=== PATIENT | female | born 2000 | race Caucasian/White ===

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

== ENCOUNTER → 2019-02-28 14:58 | Outpatient (CLI) | payer MEDICAID, SELFPAY ==
--- NOTE | 2019-02-28 15:11 | US_ITS ---
US thyroid HISTORY: ITS.REASON: SUBACUTE THTROIDITIS ORDERING PHYSICIAN: Galina Wolf APRN PATIENT AGE: 18 years Comparison: None FINDINGS: The right lobe is 4.3 x 1.4 x 1.6 cm with mild heterogeneous echogenicity. No discrete nodule. The left lobe is 4.3 x 1.6 x 1.5 cm. A small isoechoic nodule is present in the mid polar region at 4 mm. The isthmus is 4 mm with a small slightly hypoechoic nodule centrally at 5 mm. IMPRESSION: 1. Small nodules within the isthmus and left lobe which are low level of suspicion for malignancy. Recommend follow-up exam in 6 months to confirm stability. 2. Mildly enlarged thyroid gland.
== END ==
PROVIDERS: PCP Nurse Practitioner Family; Visit Provider Nurse Practitioner Family
DX: E06.1 Subacute thyroiditis (principal)
CPT/HCPCS: 76536

== ENCOUNTER 2019-05-01 08:00 | Outpatient (RCR) | payer OTHER, SELFPAY | END 2019-05-01 10:00 | disposition home or self-care (01) | LOC: PT.CARL 08:00 | PROVIDERS: Visit Provider Orthopaedic Surgery Adult Reconstructive Orthopaedic Surgery | DX: M25.511 Pain in right shoulder (principal) | CPT/HCPCS: 97010; 97014; 97110; 97140; 97163; G0283 ==

== ENCOUNTER → 2019-09-06 13:10 | Outpatient (CLI) | payer OTHER, SELFPAY ==
--- NOTE | 2019-09-06 15:00 | US_ITS ---
PROCEDURE: US THYROID CLINICAL INDICATION: GOITER COMPARISON: THY US thyroid from 02/28/2019 FINDINGS: Right lobe: 1.3 x 4.2 x 1.4 centimeters. Left lobe: 1.5 x 4.3 x 1.6 centimeters. Isthmus: AP diameter is 3.9 millimeters. Additional findings: The somewhat coarse echogenic texture of the thyroid tissue remains stable. There are no abnormal nodules. IMPRESSION: No change. No follow-up is necessary. Dictated by: Ugo Cedeño 09/06/2019 16:01 Electronically signed by Ugo Cedeño in [place] 09/06/2019 16:01
== END ==
PROVIDERS: PCP Nurse Practitioner; Visit Provider Nurse Practitioner
DX: E01.1 Iodine-deficiency related multinodular (endemic) goiter (principal)
CPT/HCPCS: 76536

== ENCOUNTER → 2019-09-30 15:27 | Outpatient (CLI) | payer OTHER, SELFPAY ==
[2019-09-30 17:12] LABS: Free T4 (Free Thyroxine) 1.17 ng/dl (0.78-1.34); Thyroid Stimulating Hormone 3.93 uIU/ml (0.516-4.13)
[2019-10-02 18:18] LABS: Thyroid Peroxidase Antibodies 283 IU/mL (0-34)
[2019-10-04 12:33] LABS: Calcitonin <2.0 pg/mL (0.0-5.0); Thyroid Stimulating Immunoglob <0.10 IU/L (0.00-0.55)
== END ==
PROVIDERS: Visit Provider Otolaryngology
DX: E03.9 Hypothyroidism, unspecified (principal); E04.9 Nontoxic goiter, unspecified; E06.9 Thyroiditis, unspecified
CPT/HCPCS: 36415; 82308; 84439; 84443; 84445; 86376

== ENCOUNTER 2020-02-09 10:43 | Emergency (ER) | payer BC, SELFPAY ==
[2020-02-09 10:45] VITALS: BP 118/71; PULSE 81; RESP 18; TEMP 37.1; O2SAT 97; BMI 25.8
[2020-02-09 11:03] LABS: Microscopic, Urine URINE MICROSCOPIC (MICROSCOPIC)
[2020-02-09 11:04] LABS: Appearance,Urine CLEAR (Clear); Bilirubin,Urine Negative (Negative); Blood, Urine Negative (Negative); Color,Urine YELLOW (Yellow); Glucose,Urine (UA) Negative (Negative); Ketones,Urine Negative (Negative); Leukocyte Esterase,Urine Negative (Negative); Nitrate,Urine Negative (Negative); PH,Urine 6.5 (5.0-8.5); Protein,Urine Negative (Negative); Urobilinogen,Urine 0.2 EU/dl (0.2)
[2020-02-09 11:08] LABS: Basophils # 0.1 K/mm3 (0-0.2); Basophils % 1.2 % (0.1-2.0); Eosinophils # 0.1 K/mm3 (0.0-0.4); Eosinophils % 1.4 % (0.1-12.0); Hematocrit 36.6 % (37.0-47.0); Hemoglobin 12.7 g/dL (12.2-16.2); Lymphocytes # 2.5 K/mm3 (0.7-4.5); Mean Corpuscular HGB Conc 34.9 g/dL (31.8-35.4); Mean Corpuscular Hemoglobin 31.7 pg (27.0-31.2); Mean Corpuscular Volume 90.8 fl (81-99); Mean Platelet Volume 8.8 fl (7.4-10.4); Monocytes # 0.6 K/mm3 (0.1-1.0); Monocytes % 5.6 % (1.7-9.3); Neutrophils # 7.3 K/mm3 (1.8-7.8); Neutrophils % 68.9 % (37.0-80.0); Platelet Count 280 K/mm3 (142-424); Red Blood Count 4.03 M/mm3 (4.20-5.40); Red Cell Distribution Width 12.6 % (11.5-17.5); White Blood Count 10.7 K/mm3 (4.5-13.0)
[2020-02-09 11:13] LABS: Urine Pregnancy, HCG Qual. Positive (Negative)
[2020-02-09 11:15] LABS: Bacteria,Urine Trace /lpf; Mucus,Urine 1+ /lpf; WBC,Urine Occasional #/hpf (0-3)
[2020-02-09 11:18] LABS: Alanine Aminotransferase 12 U/L (12-78); Albumin Level 5.2 g/dl (3.5-5.0); Albumin/Globulin Ratio 1.6 (1.1-1.8); Alkaline Phosphatase 49 U/L (38-126); Anion Gap 13.2 mEq/L (5-15); Aspartate Amino Transferase 35 U/L (14-36); Bilirubin,Total 0.3 mg/dl (0.2-1.3); Blood Urea Nitrogen 10 mg/dl (7-17); Calcium 9.9 mg/dl (8.4-10.2); Carbon Dioxide 28 mmol/L (22.0-30.0); Chloride 98 mmol/L (98-107); Creatinine Clearance Estimated 177 mL/min (50-200); Estimated Glomerular Filt Rate 127 ml/min (>60); GFR (African American) 154 ML/MIN (>60); Globulin 3.3 g/dL (1.3-3.2); Glucose 91 mg/dl (74-100); Potassium 4.2 mmoL/L (3.5-5.1); Sodium 135 mmol/L (136-145); Total Protein,Serum 8.5 g/dl (6.3-8.2)
--- NOTE | 2020-02-09 11:40 | HMH.EDPREG ---
ED Disposition Clinical Impression: Hyperemesis gravidarum Qualifiers: Weeks of gestation: less than 8 weeks Qualified Code(s): Z3A.01 - Less than 8 weeks gestation of Disposition: Home, Self-Care Condition on Discharge: Good Instructions: DI for -- Discomforts and Remedies Additional Instructions: fluids and call ob in am Referrals: Alcira Juárez APRN [Primary Care Provider] - - Critical Care Critical Care Time: No Attestation: On 02/09/20, the high probability of a clinically significant, sudden or life threatening deterioration of the following system(s) required my full and direct attention, intervention and personal management. The time I documented below is in addition to time spent performing reported procedures but includes the following listed in this critical care notation. Medical Decision Making - Medical Records Medical records reviewed: Yes: I reviewed the patient's medical records. - Elier Inquiry Pt receiving controlled substance: No Vital Signs: 02/09/20 10:45 Temperature 98.7 F Temperature Source Oral Pulse Rate [Right] 81 Respiratory Rate 18 Blood Pressure [Right Arm] 118/71 Blood Pressure Mean [Right Arm] 86 02 Sat by Pulse Oximetry 97 - Lab Data Lab results reviewed: Yes: I reviewed the patient's lab results. Lab Results 02/09/20 10:50: Urine Color Yellow, Urine Appearance Clear, Urine pH 6.5, Ur Specific [place] 1.020, Urine Protein Negative, Urine Glucose (UA) Negative, Urine Ketones Negative, Urine Blood Negative, Urine Nitrate Negative, Urine Bilirubin Negative, Urine Urobilinogen 0.2, Ur Leukocyte Esterase Negative, Urine RBC None, Urine WBC Occasional, Ur Squamous Epith Cells 5-10, Urine Bacteria Trace, Urine Mucus 1+ 02/09/20 11:01: WBC 10.7, RBC 4.03 L, Hgb 12.7, Hct 36.6 L, MCV 90.8, MCH 31.7 H, MCHC 34.9, RDW 12.6, Plt Count 280, MPV 8.8, Neut % (Auto) 68.9, Lymph % (Auto) 23.0, [place] % (Auto) 5.6, Eos % (Auto) 1.4, Baso % (Auto) 1.2, Neut # (Auto) 7.3, Lymph # (Auto) 2.5, [place] # (Auto) 0.6, Eos # (Auto) 0.1, Baso # (Auto) 0.1 02/09/20 11:01: Urine HCG, Qual Positive 02/09/20 11:01: Sodium 135 L, Potassium 4.2, Chloride 98, Carbon Dioxide 28, Anion Gap 13.2, BUN 10, Creatinine 0.60, Estimated Creat Clear 177, Estimated GFR 127, Est GFR ( Amer) 154, Glucose 91, Calcium 9.9, Total Bilirubin 0.3, AST 35, ALT 12, Alkaline Phosphatase 49, Total Protein 8.5 H, Albumin 5.2 H, Globulin 3.3 H, Albumin/Globulin Ratio 1.6 02/09/20 11:01: HCG, Quant [id number] H Result diagrams: 02/09/20 11:01 02/09/20 11:01 Orders (Tests/Meds): ED MEDICATIONS Generic Name Dose Route Start Last Admin Trade Name Freq PRN Reason Stop Dose Admin Sodium Chloride 1,000 mls @ 999 mls/hr 02/09/20 11:00 02/09/20 11:17 Sod Chlor 0.9% 1000ml Bag IV 02/09/20 12:00 999 mls/hr .Q1H1M SALVATORE Administration Sodium Chloride 1,000 mls @ 999 mls/hr 02/09/20 12:00 02/09/20 11:49 Sod Chlor 0.9% 1000ml Bag IV 02/09/20 13:00 999 mls/hr .Q1H1M SALVATORE Administration - Reevaluation(s) Time: 12:23 Reevaluation #1: improved HPI - General Chief complaint: Nausea/Vomiting/Diarrhea Stated complaint: 7 weeks preg dehyd Time Seen by Provider: 02/09/20 11:00 Mode of Arrival: Ambulatory Source of Information: Patient, Medical Record Limitations: No Limitations Description of Symptoms (Recalled from ER Triage Doc. by RN): States she is aprox 7 weeks and is having severe vomiting since this morning. - History of Present Illness HPI Narrative: preg about 7 weeks and vomiting - no fever or vag bleeding MD Complaint: other (vomiting ) Onset (ago): hour(s) Consistency: intermittent Severity: moderate Associated symptoms: nausea, vomiting : yes Date of Last Menstrual Period: na care: followed by OB - Related Data Para: 0 Home Medications Medication Instructions Recorded Confirmed Levothyroxine Sodium [Syn
[2020-02-09 12:41] VITALS: BP 125/85; PULSE 100; RESP 20; TEMP 36.8; O2SAT 98
== END 2020-02-09 12:42 | disposition home or self-care (01) ==
PROVIDERS: Emergency Provider Emergency Medicine; PCP Nurse Practitioner
DX: O21.0 Mild hyperemesis gravidarum (principal); Z3A.08 8 weeks gestation of pregnancy
CPT/HCPCS: 80053; 81001; 81025; 84702; 85025; 96365; 96366; 99283

== ENCOUNTER 2020-05-06 11:33 | Emergency (ER) | payer BC, MEDICAID, SELFPAY ==
[2020-05-06 11:34] VITALS: BP 130/73; PULSE 99; RESP 18; TEMP 36.8; O2SAT 100; BMI 21.4
[2020-05-06 12:22] LABS: Basophils % 0.3 % (0.1-2.0); Eosinophils # 0.4 K/mm3 (0.0-0.4); Eosinophils % 4.4 % (0.1-12.0); Hematocrit 28.7 % (37.0-47.0); Hemoglobin 9.9 g/dL (12.2-16.2); Lymphocytes # 1.4 K/mm3 (0.7-4.5); Lymphocytes % 14.6 % (10-50); Mean Corpuscular HGB Conc 34.6 g/dL (31.8-35.4); Mean Corpuscular Hemoglobin 32.1 pg (27.0-31.2); Mean Corpuscular Volume 92.7 fl (81-99); Mean Platelet Volume 9.6 fl (7.4-10.4); Monocytes # 0.3 K/mm3 (0.1-1.0); Monocytes % 3.1 % (1.7-9.3); Neutrophils # 7.6 K/mm3 (1.8-7.8); Neutrophils % 77.5 % (37.0-80.0); Platelet Count 227 K/mm3 (142-424); Red Blood Count 3.09 M/mm3 (4.20-5.40); Red Cell Distribution Width 13.9 % (11.5-17.5); White Blood Count 9.8 K/mm3 (4.8-10.8)
[2020-05-06 12:28] LABS: Anion Gap 12.5 mEq/L (5-15); Blood Urea Nitrogen 5 mg/dl (7-17); Calcium 9.1 mg/dl (8.4-10.2); Carbon Dioxide 27 mmol/L (22.0-30.0); Chloride 100 mmol/L (98-107); Creatinine Clearance Estimated 218 mL/min (50-200); Estimated Glomerular Filt Rate 201 ml/min (>60); GFR (African American) 244 ML/MIN (>60); Glucose 129 mg/dl (74-100); Potassium 3.5 mmoL/L (3.5-5.1); Sodium 136 mmol/L (136-145)
--- NOTE | 2020-05-06 12:29 | ECG_ITS ---
APPROVED REPORT Exam: Resting ECG HR:96 bpm ECG Measurements Heart Rate 96 AXES HI 122 P 61 QRSd 74 QRS 43 QT 344 T 30 QTc 434 <Conclusion> Normal sinus rhythm Normal ECG Electronically signed by : Ran Johnston, 05/09/2020 07:09:22
--- NOTE | 2020-05-06 12:40 | HMH.EDGENADL ---
ED Disposition Clinical Impression: Lightheadedness Disposition: Home, Self-Care Condition on Discharge: Good Referrals: Alcira Juárez APRN [Primary Care Provider] - - Critical Care Critical Care Time: No Attestation: On 05/06/20, the high probability of a clinically significant, sudden or life threatening deterioration of the following system(s) required my full and direct attention, intervention and personal management. The time I documented below is in addition to time spent performing reported procedures but includes the following listed in this critical care notation. Medical Decision Making - Elier Inquiry Pt receiving controlled substance: No Vital Signs: 05/06/20 11:34 Temperature 98.2 F Temperature Source Oral Pulse Rate [Right] 99 H Respiratory Rate 18 Blood Pressure [Right Arm] 130/73 Blood Pressure Mean [Right Arm] 92 02 Sat by Pulse Oximetry 100 - Lab Data Lab Results 05/06/20 12:00: WBC 9.8, RBC 3.09 L, Hgb 9.9 L, Hct 28.7 L, MCV 92.7, MCH 32.1 H, MCHC 34.6, RDW 13.9, Plt Count 227, MPV 9.6, Neut % (Auto) 77.5, Lymph % (Auto) 14.6, [place] % (Auto) 3.1, Eos % (Auto) 4.4, Baso % (Auto) 0.3, Neut # (Auto) 7.6, Lymph # (Auto) 1.4, [place] # (Auto) 0.3, Eos # (Auto) 0.4, Baso # (Auto) 0.0 05/06/20 12:00: Sodium 136, Potassium 3.5, Chloride 100, Carbon Dioxide 27, Anion Gap 12.5, BUN 5 L, Creatinine 0.40 L, Estimated Creat Clear 218, Estimated GFR 201, Est GFR ( Amer) 244, Glucose 129 H, Calcium 9.1 Result diagrams: 05/06/20 12:00 05/06/20 12:00 Orders (Tests/Meds): ORDERS Category Date Time Status EKG Request [ECG Request by /Kenny] Stat Y 05/06/20 12:12 Ordered Medical Decision Narrative: In summary patient presents for dizziness. Patient arrival had stable vitals, not tachycardic, not hypoxemic. Patient denies any chest pain, shortness of breath at this time. Symptoms now resolved. Patient states that she was sitting down when this occurred. Patient EKG demonstrates no STEMI, no QTC QRS prolongation, appears to be normal sinus rhythm, no concern for right heart strain. Bedside echo demonstrates no right heart strain, good cardiac ejection fraction, no IVC dilation unlikely to be cardiogenic at this time. Patient labs within normal limits, hemoglobin 9.9, slightly lower than baseline however patient is getting iron infusions. Patient is not requiring transfusion at this time. Patient was able to ambulate into the ER without presyncope or dizziness, patient is amenable to discharge and follow-up with her doctor. Is not hypoglycemic, does not have any headache, low concern for VTE or subarachnoid hemorrhage, patient to have severe GI bleed requiring transfusion, no abdominal pain, low concern for ruptured uterus. General Adult HPI - General Chief complaint: Recheck/Abnormal Lab/Rx Stated complaint: 19 weeks preg bp dropped Time Seen by Provider: 05/06/20 12:20 Mode of Arrival: Ambulatory Limitations: No Limitations Description of Symptoms (Recalled from ER Triage Doc. by RN): 19 WEEKS AND AT WORK SHE STATES SHE GOT DIZZY AND CLAMP SO SHE CHECKED HER BP AND IT WAS 70S/30S - History of Present Illness HPI narrative: Patient is 20-year-old female currently 19 weeks presenting for episode of lightheadedness that occurred an hour ago which is now resolved. Patient has not had the symptoms previously but does have a history of iron deficiency anemia and hypothyroidism. 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 Recently had an iron transfusion. Patient denies any chest pain, shortness of breath, nausea, vomiting, abdominal pain. Patient still feels movement at this time. Patient has no history of PE, DVT, not on any anticoagulation, patient not had any dehydration recently either. Her next appointment is coming up in several weeks with PERFORMANCE IMPROVEMENT COORDINATOR. - Related Data Home Medications Medication Instructions Recorded
[2020-05-06 13:03] VITALS: BP 112/64; PULSE 98; RESP 17; TEMP 36.8; O2SAT 100
== END 2020-05-06 13:04 | disposition home or self-care (01) ==
PROVIDERS: Emergency Provider Emergency Medicine; PCP Nurse Practitioner
DX: R42 Dizziness and giddiness (principal); Z3A.19 19 weeks gestation of pregnancy; D50.9 Iron deficiency anemia, unspecified; R01.1 Cardiac murmur, unspecified
CPT/HCPCS: 80048; 85025; 93005; 99282